=== PATIENT | female | born 1955 | race Caucasian/White ===

== ENCOUNTER → 2016-09-24 | Outpatient (CLI) | payer BC ==
[~2016-09-24] MED LIST: AMLO10CA PO; ASCO10003 PO; ASPI81TA21 PO; CIPR-255 PO; IBUP-103 PO; MULT-506 PO; OXYC7.5T65 PO
--- NOTE | 2016-09-24 11:41 | DIAGNOSTIC IMAGING REPORT ---
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 Renal shadows are otherwise poorly seen due to overlying bowel content. Several pelvic vascular calcifications stable. IMPRESSION: 4 mm calcification lower pole right kidney. Renal shadows are otherwise are not well seen due to overlying bowel content Electronically signed by: Valente Palomares M.D. 09/24/2016 11:40 AM Dictated Date/Time: 09/24/2016 11:39 AM
== END | disposition home or self-care (01) ==
LOC: C.RAD 10:18
PROVIDERS: ATTEND Nurse Practitioner Family
DX: N20.0 Calculus of kidney (principal)

== ENCOUNTER → 2017-04-13 | Outpatient (CLI) | payer BC ==
[~2017-04-13] MED LIST changes: -OXYC7.5T65 PO
--- NOTE | 2017-04-13 09:44 | DIAGNOSTIC IMAGING REPORT ---
KUB HISTORY: R31.0 Gross [id number] COMPARISON: KUB 09/24/2016. FINDINGS: The bowel gas pattern is unremarkable. There are no dilated loops of small bowel to suggest an obstruction. Small cluster of calcifications within the lower pole of the right kidney. There is also a 3 mm stone within the lower pole the left kidney. This remains unchanged. No definite ureteral or bladder calculi identified. Calcifications in the deep pelvis remain stable and are consistent with phleboliths. Cholecystectomy. No pneumoperitoneum or pneumatosis. IMPRESSION: Stable bilateral nephrolithiasis. No ureteral calculi. Electronically signed by: Virgilio De Souza M.D. 04/13/2017 9:42 AM Dictated Date/Time: 04/13/2017 9:41 AM
== END | disposition home or self-care (01) ==
LOC: C.RDSM 09:20
PROVIDERS: ATTEND Urology
DX: R31.0 Gross hematuria (principal)

== ENCOUNTER → 2018-04-11 | Outpatient (CLI) | payer OTHER ==
[~2018-04-11] MED LIST changes: +ASPI-319 PO; -ASPI81TA21 PO
--- NOTE | 2018-04-11 17:27 | DIAGNOSTIC IMAGING REPORT ---
KUB HISTORY: Follow-up study in a patient with history of nephrolithiasis N20.0 Calculus of kidney COMPARISON: KUB 04/13/2017 FINDINGS: The bowel gas pattern is non-obstructive. There is no organomegaly. Renal shadows are partially obscured by bowel gas. Mild to moderate formed stool throughout the colon. Unchanged 3 mm calculus about the inferior pole left kidney. Suggested punctate right nephrolithiasis. No ureteral calculi. Pelvic basin calcifications appear unchanged suggesting phleboliths. Cholecystectomy clips are noted. No pneumoperitoneum or pneumatosis. No fracture. Degenerative changes about the lower lumbar spine. IMPRESSION: Bilateral nephrolithiasis without ureteral calculi identified. Electronically signed by: John Boyd M.D. 04/11/2018 5:26 PM Dictated Date/Time: 04/11/2018 5:24 PM
== END | disposition home or self-care (01) ==
LOC: C.RAD 16:40
PROVIDERS: ATTEND Urology
DX: N20.0 Calculus of kidney (principal)

== ENCOUNTER 2024-09-27 17:08 | Inpatient (IN) ==
[2024-09-27] MEDS: KETOROLAC TROMETHAMINE 15 MG/ML VIAL IV STA (18:19)
[2024-09-27 18:40] LABS: Basophils # (auto) 0.03 K/uL (0.00-0.20); Basophils % (auto) 0.3 %; Eosinophils # (auto) 0.12 K/uL (0.00-0.50); Eosinophils % (auto) 1.1 %; Hematocrit (blood only) 44.4 % (37.0-47.0); Hemoglobin 14.8 g/dl (12.0-16.0); Immature Granulocytes # (auto) 0.04 K/uL (0.01-0.20); Immature Granulocytes % (auto) 0.4 %; Lymphocytes # (auto) 2.21 K/uL (1.20-3.40); Lymphocytes % (auto) 19.5 %; Mean Corpuscular Hemoglobin 30.3 pg (25.0-34.0); Mean Corpuscular Hgb Conc 33.3 g/dL (32.0-36.0); Mean Platelet Volume 10.3 fL (9.4-12.4); Monocytes # (auto) 0.82 K/uL (0.11-0.59); Monocytes % (auto) 7.2 %; Neutrophils # (auto) 8.13 K/uL (1.40-6.50); Neutrophils % (auto) 71.5 %; Platelet Count 286 K/uL (130-400); RDW Standard Deviation 42.6 fL (36.4-46.3); Red Blood Count 4.88 M/uL (4.20-5.40); White Blood Count 11.35 K/ul (4.8-10.8)
[2024-09-27 19:10] LABS: Alanine Aminotransferase 31 U/L (7-52); Albumin Globulin Ratio 1.5 (0.9-2); Albumin Level 4.9 gm/dl (3.4-5.0); Alkaline Phosphatase 66 U/L (34-104); Anion Gap 8 (3-11); Bilirubin,Total 0.6 mg/dl (0.2-1.0); Blood Urea Nitrogen 18 mg/dl (6-23); Calcium 9.8 mg/dl (8.6-10.3); Carbon Dioxide 26 mmol/L (21-32); Chloride 105 mmol/L (98-107); Creatinine Clr Calc Pharmacy 67.1 ml/min; Globulin 3.3 gm/dl (2.5-4.0); Glucose 117 mg/dl (70-99(Fasting)); Sodium 139 mmol/L (136-145); Total Protein 8.2 gm/dl (6.0-8.3)
[2024-09-27 19:55] LABS: Appearance Urine Cloudy (Clear); Bacteria Urine Automated None Seen (None Seen); Bilirubin Urine Negative (Negative); Blood Urine 3+ (Negative); Cast Urine Automated 0-2 /lpf (0-2); Color Urine Dark Yellow; Epithelial Cell Urine Auto 0-2 /hpf (0-2); Glucose Urine UA Negative (Negative); Ketones Urine 1+ (Negative); Leukocyte Esterase Urine 1+ (Negative); Nitrite Urine Negative (Negative); Protein Urine 1+ (Negative); RBC Urine Automated >20 /hpf (0-2); Specific Gravity Urine 1.033 (1.000-1.030); Urobilinogen Urine Negative (Negative); pH Urine 5.5 (4.5-7.5)
--- NOTE | 2024-09-27 23:13 | Emergency Department Note ---
Impression & Plan Nephrolithiasis, Acute flank pain ED Provider Note CHIEF COMPLAINT: Kidney stone HISTORY OF PRESENT ILLNESS: This 69-year-old female patient presents to the emergency department via private vehicle for evaluation of 2 kidney stones on the left side. She reports she was here last night after being referred by her primary care provider. She states her PCP contacted her today and informed her return to the emergency department. She states her symptoms have worsened. She reports no fever, however is having worsening left-sided pain. She states she was having nausea and vomiting, however that is resolved. She reports she was discharged, with Flomax, and pain control, which has not alleviated her symptoms. She denies fever, or movement of her pain. She reports previous kidney stones, with lithotripsy and stenting required. REVIEW OF SYSTEMS: A review of systems was performed with positives and pertinent negatives listed in the history of present illness. All other systems were reviewed and are negative. ALLERGIES: See below MEDICATIONS: See below PMH: See below PHYSICAL EXAM: VITALS: Vitals are noted on the nurse's note and reviewed by myself. Vital signs stable. GENERAL: 69-year-old female, in no acute distress, nondiaphoretic, well- developed well-nourished. SKIN: The skin was without rashes, erythema, edema, or bruising. HEAD: Normocephalic atraumatic. HEART: Regular rate and rhythm without murmurs gallops or rubs. LUNGS: Clear to auscultation bilaterally without wheezes, rales or rhonchi. No retractions or accessory muscle use. ABDOMEN: Positive bowel sounds x 4. Soft, nontender, without masses or organomegaly. Razo sign negative. No guarding or rebound tenderness. Left CVA TTP. NEURO: Patient was alert and oriented to person place and time. No focal neurological deficits. MEDICAL DECISION MAKING: The patient is a pleasant 69-year-old female who arrives to the emergency department for evaluation of the above-stated complaint. The patient was evaluated during a time of high acuity, and high- volume. Initial workup was performed in triage including a saline lock, CBC, CMP, urinalysis. CBC shows slight leukocytosis, 11.35, with a stable hemoglobin and hematocrit, CMP is unremarkable. Urinalysis 1+ protein, 1+ ketones, 3+ blood, 1+ leukocyte esterase, negative nitrates, negative bacteria. CT imaging of the abdomen and pelvis without contrast was obtained, which shows mild left hydronephrosis due to a 9 x 6 mm calculus in the proximal left ureter. The patient was discharged home yesterday, with these findings, with an expectation to pass the stone at home. The patient has reported increased pain, not treated with oral Flomax, and oxycodone. She returns today for concern of not being able to pass the stone, which I do agree with. I spoke with the patient regarding admission for pain control, after IV administration of Toradol, and morphine with slight relief. She was agreeable to staying in the hospital for pain control, as well as urologic consultation. I spoke with Hollis Nassar PA-C from urology, who agreed to consult the patient. The patient was admitted to the [facility], who agreed to accept her for admission. Please refer to their documentation for further patient workup and care. DIFFERENTIAL DIAGNOSIS: Appendicitis, ovarian cyst, ovarian torsion, ectopic , TOA, PID, infections, diverticulitis, UTI, obstruction, mesenteric ischemia, aortic pathology, inflammatory bowel disease, renal colic, PUD, pancreatitis, biliary pathology, hernia, volvulus, constipation, as well as other pathologies. The patient's case was discussed with Dr. Lockhart, who agreed with my evaluation and treatment plan. The chart was completed utilizing [employer] Speech voice recognition software. Grammatical errors, random word insertions, pronoun errors, and incomplete sentences are an occasional consequence of this system due to software limitations, ambient noise, and hardware issues. Any formal questions or concerns about the content, text, or information contained within the body of this dictation should be directly addressed to the physician for clarification. Past Med/Surg History Problem List (Updated 09/28/24 @ 01:46 by KENIA Jones) Acute flank pain (Acute) Nephrolithiasis (Acute) Social History Smoking Status: Never smoker Preferred Language: Kittitian Feels Safe at Home: Yes Allergies Allergies Allergy/AdvReac Type Severity Reaction Status Date / Time No Known Allergies Allergy Unknown Verified 03/31/16 07:50 Home Meds Home Medications Medication Instructions Recorded Confirmed Aspirin Enteric Coated (Ecotrin Or 81 mg PO QAM #0 tabs 11/17/12 Generic) Multivitamin 1 tab PO QAM #0 tabs 11/17/12 ASCORBIC ACID (VITAMIN C) 1,000 mg PO QAM ##0 11/22/12 Amlodipine/Benazepril (Lotrel 1 cap PO QAM #0 caps 11/22/12 10MG/20MG) Ibuprofen Tab (ADVIL) 400 - 600 mg PO PRN #0 tabs 03/18/16 Previous Rx's Medication Instructions Recorded CIPROFLOXACIN HCL (CIPRO) 500 mg PO BID #8 tabs 03/31/16 Results & Data (ED) Vital Signs Vital Signs - 24 hr 09/27/24 17:48 09/27/24 19:43 09/27/24 22:00 Temperature 36.5 C Temperature Source Skin Pulse Rate 90 64 Pulse Rate [Finger] 80 Respiratory Rate 19 20 Respiratory Effort / Characteristics Non-Labored Spontaneous Non-Labored Spontaneous Respiratory Depth Normal Normal Respiratory Pattern Regular Blood Pressure 149/85 H Blood Pressure [Right Arm] 127/77 Blood Pressure Mean 106 Blood Pressure Mean [Right Arm] 93 Blood Pressure Position [Right Arm] Pulse Oximetry 97 97 Oxygen Delivery Method Room Air Room Air Sepsis Recent Fever Within 48 Hours No Sepsis New/Unexplained Change in Mental Status N/A Sepsis Action Taken by Nursing No Action Required 09/27/24 22:01 Temperature Temperature Source Pulse Rate Pulse Rate [Finger] 59 L Respiratory Rate 18 Respiratory Effort / Characteristics Non-Labored Spontaneous Respiratory Depth Respiratory Pattern Blood Pressure Blood Pressure [Right Arm] 146/82 H Blood Pressure Mean Blood Pressure Mean [Right Arm] 103 Blood Pressure Position [Right Arm] Lying Pulse Oximetry 97 Oxygen Delivery Method Room Air Sepsis Recent Fever Within 48 Hours Sepsis New/Unexplained Change in Mental Status Sepsis Action Taken by Intermediate Medications Current Medication List: was personally reviewed by me Laboratory Data Attestation: I reviewed the patient's lab results. 09/27/24 18:20 09/28/24 01:10 Lab Results 09/27/24 09/27/24 09/28/24 Range/Units 18:20 19:42 01:10 WBC 11.35 H (4.8-10.8) K/ul RBC 4.88 (4.20-5.40) M/uL Hgb 14.8 (12.0-16.0) g/dl Hct 44.4 (37.0-47.0) % MCV 91.0 (80.0-100.0) fL MCH 30.3 (25.0-34.0) pg MCHC 33.3 (32.0-36.0) g/dL RDW Std Deviation 42.6 (36.4-46.3) fL RDW Coeff of Vonda 13.0 (11.5-14.5) % Plt Count 286 (130-400) K/uL MPV 10.3 (9.4-12.4) fL Immature Gran % (Auto) 0.4 % Neut % (Auto) 71.5 % Lymph % (Auto) 19.5 % Canyon % (Auto) 7.2 % Eos % (Auto) 1.1 % Baso % (Auto) 0.3 % Neut # (Auto) 8.13 H (1.40-6.50) K/uL Lymph # (Auto) 2.21 (1.20-3.40) K/uL Canyon # (Auto) 0.82 H (0.11-0.59) K/uL Eos # (Auto) 0.12 (0.00-0.50) K/uL Baso # (Auto) 0.03 (0.00-0.20) K/uL Immature Gran # (Auto) 0.04 (0.01-0.20) K/uL Sodium 139 (136-145) mmol/L Potassium TNP 3.7 Chloride 105 (98-107) mmol/L Carbon Dioxide 26 (21-32) mmol/L Anion Gap 8 (3-11) BUN 18 (6-23) mg/dl Creatinine 0.82 (0.6-1.2) mg/dl Est Cr Clr Drug Dosing 67.1 ml/min eGFR 78.35 BUN/Creatinine Ratio 22.0 H (10-20) Glucose 117 H (70-99(Fasting)) mg/dl Calcium 9.8 (8.6-10.3) mg/dl Total Bilirubin 0.6 (0.2-1.0) mg/dl AST TNP 26 ALT 31 (7-52) U/L Alkaline Phosphatase 66 (34-104) U/L Total Protein 8.2 (6.0-8.3) gm/dl Albumin 4.9 (3.4-5.0) gm/dl Globulin 3.3 (2.5-4.0) gm/dl Albumin/Globulin Ratio 1.5 (0.9-2) Urine Color Dark Yellow Urine Appearance Cloudy A (Clear) Urine pH 5.5 (4.5-7.5) Ur Specific Ambia 1.033 H (1.000-1.030) Urine Protein 1+ H (Negative) Urine Glucose (UA) Negative (Negative) Urine Ketones 1+ H (Negative) Urine Blood 3+ H (Negative) Urine Nitrite Negative (Negative) Urine Bilirubin Negative (Negative) Urine Urobilinogen Negative (Negative) Ur Leukocyte Esterase 1+ H (Negative) Urine WBC (Auto) 11-20 H (0-5) /hpf Urine RBC (Auto) >20 H (0-2) /hpf U Hyaline Cast (Auto) 0-2 (0-2) /lpf U Epithel Cells (Auto) 0-2 (0-2) /hpf Urine Bacteria (Auto) None Seen (None Seen) Administered Medications Discontinued Medications Sodium Chloride (Nss) 1,000 mls @ 999 mls/hr IV .Q1H1M ONE Stop: 09/28/24 00:20 Last Admin: 09/27/24 23:54 Dose: 999 mls/hr Documented By: GAUTAM Ketorolac Tromethamine (Ketorolac Tromethamine 15 Mg/Ml Vial) 15 mg IV ONE STA Stop: 09/27/24 17:56 Last Admin: 09/27/24 18:19 Dose: 15 mg Documented By: OTONIEL Morphine Sulfate (Morphine Sulfate 4 Mg/Ml 1 Ml Carp\Vial) 4 mg IV NOW STA Stop: 09/27/24 23:29 Last Admin: 09/27/24 23:50 Dose: 4 mg Documented By: GAUTAM Imaging Data Attestation: I personally reviewed and interpreted this imaging study as follows: Radiologist's Impression: Abdomen/Pelvis CT 09/27/24 22:19 Exam(s): CT ABDOMEN + PELVIS Without Contrast EXAM: CT Abdomen and Pelvis Without Intravenous Contrast CLINICAL HISTORY: Reason for exam: r/o stone. TECHNIQUE: Axial computed tomography images of the abdomen and pelvis without intravenous contrast. CTDI is 24.46 mGy and DLP is 1144.76 mGy-cm. Automated exposure control was utilized for the study. A dose lowering technique was utilized adhering to the principles of ALARA. COMPARISON: September 26, 2024 FINDINGS: Lung bases: Unremarkable. No mass. No consolidation. ABDOMEN: Liver: Unremarkable. Gallbladder and bile ducts: Previous cholecystectomy. No ductal dilation. Pancreas: Unremarkable. No ductal dilation. Spleen: Unremarkable. No splenomegaly. Adrenals: Unremarkable. No mass. Kidneys and ureters: Mild left hydronephrosis due to a 9 x 6 mm calculus in the proximal left ureter, just beyond the ureteropelvic junction. Nonobstructive 3 mm calyceal calculus in the lower pole left kidney. Stomach and bowel: Unremarkable. No obstruction. No mucosal thickening. PELVIS: Appendix: No findings to suggest acute appendicitis. Bladder: Unremarkable. No stones. Reproductive: Unremarkable as visualized. ABDOMEN and PELVIS: Intraperitoneal space: Unremarkable. No free air. No significant fluid collection. Bones/joints: Moderate multilevel degenerative changes throughout the spine. No acute fracture or subluxation is seen. Soft tissues: Unremarkable. Vasculature: The abdominal aorta is mildly calcified but nondilated. Lymph nodes: Unremarkable. No enlarged lymph nodes. IMPRESSION: Mild left hydronephrosis due to a 9 x 6 mm calculus in the proximal left ureter, just beyond the ureteropelvic junction. Little changed since previous. Electronically signed by: Irineo Bowman MD 09/28/24 01:00 AM Discharge Plan Visit Data Chief Complaint: Kidney Stone Stated Complaint: KIDNEY STONE (2) PROVIDER SENT ED Provider: Inocencio Lockhart ED Midlevel Provider: Daniela Alexandre Discharge Problem: Nephrolithiasis, Acute flank pain Forms Stand Alone Forms: [employer] Prescriptions Prescriptions: No Action Aspirin Enteric Coated (Ecotrin Or Generic) 81 MG tablet 81 mg PO QAM Qty: 0 Patient Comments: Restart in 5 days if urine clear Multivitamin tablet 1 tab PO QAM Qty: 0 ASCORBIC ACID (VITAMIN C) 1,000 MG tablet 1,000 mg PO QAM Qty: 0 Amlodipine/Benazepril (Lotrel 10MG/20MG) 10 MG/20 MG capsule 1 cap PO QAM Qty: 0 Ibuprofen Tab (ADVIL) 200 MG tablet 400 - 600 mg PO PRN Qty: 0 Patient Comments: Restart in 2-3 days if urine clear CIPROFLOXACIN HCL (CIPRO) 500 MG tablet 500 mg PO BID Qty: 8 0RF Referrals Referrals: Sanjana Juárez DO [Primary Care Provider] -
[2024-09-27] MEDS: MoRPHine SULFATE 4 MG/ML 1 ML CARP\\VIAL IV STA (23:50)
[2024-09-27] MEDS: SODIUM CHLORIDE 0.9% 1,000 ML IV ONE (23:54)
--- NOTE | 2024-09-28 01:01 | CT Scan Report ---
Exam(s): CT ABDOMEN + PELVIS Without Contrast EXAM: CT Abdomen and Pelvis Without Intravenous Contrast CLINICAL HISTORY: Reason for exam: r/o stone. TECHNIQUE: Axial computed tomography images of the abdomen and pelvis without intravenous contrast. CTDI is 24.46 mGy and DLP is 1144.76 mGy-cm. Automated exposure control was utilized for the study. A dose lowering technique was utilized adhering to the principles of ALARA. COMPARISON: September 26, 2024 FINDINGS: Lung bases: Unremarkable. No mass. No consolidation. ABDOMEN: Liver: Unremarkable. Gallbladder and bile ducts: Previous cholecystectomy. No ductal dilation. Pancreas: Unremarkable. No ductal dilation. Spleen: Unremarkable. No splenomegaly. Adrenals: Unremarkable. No mass. Kidneys and ureters: Mild left hydronephrosis due to a 9 x 6 mm calculus in the proximal left ureter, just beyond the ureteropelvic junction. Nonobstructive 3 mm calyceal calculus in the lower pole left kidney. Stomach and bowel: Unremarkable. No obstruction. No mucosal thickening. PELVIS: Appendix: No findings to suggest acute appendicitis. Bladder: Unremarkable. No stones. Reproductive: Unremarkable as visualized. ABDOMEN and PELVIS: Intraperitoneal space: Unremarkable. No free air. No significant fluid collection. Bones/joints: Moderate multilevel degenerative changes throughout the spine. No acute fracture or subluxation is seen. Soft tissues: Unremarkable. Vasculature: The abdominal aorta is mildly calcified but nondilated. Lymph nodes: Unremarkable. No enlarged lymph nodes. IMPRESSION: Mild left hydronephrosis due to a 9 x 6 mm calculus in the proximal left ureter, just beyond the ureteropelvic junction. Little changed since previous. Electronically signed by: Irineo Bowman MD 09/28/24 01:00 AM
--- NOTE | 2024-09-28 01:06 | Emergency Department Note ---
ED Visit Note I was consulted by the Advanced Practice Provider. The case was discussed at length. I personally made/approved the management plan and take responsibility for the patient management. I performed a substantive portion of the visit. This includes the aspects of: Patient presents with ongoing flank pain. She has a very large 9 mm ureteral stone with associated hydronephrosis. Admission for pain control and a urology consultation/intervention is warranted. .
--- NOTE | 2024-09-28 01:30 | History & Physical Report ---
Date of Service September 28, 2024 Assessment & Plan (1) Nephrolithiasis: (2) Leukocytosis: (3) Hypertension: (4) Prediabetes: (5) Hyperlipidemia: Plan Patient is a 69 y/o female with a PMHx of prediabetes, HTN, HLD, and right sided nephrolithiasis requiring stents x1. She is being admitted for an infected left- sided nephrolithiasis requiring IV antibiotics, IV pain control and possible surgical management with urology. #nephrolithiasis/leukocytosis CTAP showing Mild left hydronephrosis due to a 9 x 6 mm calculus in proximal left ureter, just beyond UPJ suspect infectious given leukocytosis with WBC 11.35 on admission UA high specific gravity, 1+ ketones, 1+ protein, 3+ blood, leukocyte esterase, 11-20 WBC, no bacteria seen Will cover with Rocephin Follow urine cultures urology consulted n.p.o. status in to be evaluated in a.m. 09/28 to determine if surgical management required Renal function stable, trend BMP tamsulosin 0.4 Mg daily Pain control with IV Tylenol and IV morphine 2/4 mg as needed Zofran as needed IVF resuscitation overnight with NSS at 80 mL/hour #Hypertension Hold home amlodipine/benazepril given n.p.o. status and possible surgical management BP stable on admission #Prediabetes On metformin at home; hold Defer insulin management on admission; could add loose SSI if consistently hyperglycemic No recent A1c on file however patient states is 5.5 #HLD Holding statin given n.p.o. status VTE ppx: SCDs, low risk and possible surgical management Diet: n.p.o.; can have heart healthy diet when no longer n.p.o. status Dispo: MedSurg Admission and Anticipated Discharge Date Admission Date: 09/28/24 History of Present Illness Chief Complaint: kidney stone Primary Care Provider: Sanjana Azar DO Patient is a 69 y/o female with a PMHx of prediabetes, HTN, HLD, and right sided nephrolithiasis requiring stents x1. She is being admitted for an infected left- sided nephrolithiasis requiring IV antibiotics, IV pain control and possible surgical management with urology. Patient seen at bedside. She stated that she went to [place] with her cousin recently and had 2 days of hematuria there. She had no recurrence of the hematuria since. She then came home and started to develop left-sided flank pain and nausea/vomiting. She does have a history of kidney stones and this feels similar so she knew she had a stone. He had right sided kidney stone approximately 4 years ago that required stent placement by Dr. Hawthorne. She has had multiple stones since but passed them on her own. She went to her PCP Thursday evening and they prescribed her Tylenol, oxycodone, and tamsulosin. They then referred her to the hospital for CT scan which showed a left-sided kidney stone. She stated she had significant pain Thursday and her PCP referred her to come to the ED. she did not start taking the medications prescribed. Patient denies fever, chills, dyspnea, chest pain, nausea, vomiting, dysuria. She does not use nicotine products or regularly drink alcohol. She denies history of diabetes but does have prediabetes takes metformin. She denies history of previous VTE. She does not have a history of COPD or asthma. She did take her home medications today, which includes Lotrel and a cholesterol medication. She wishes to be full code at this time. Allergies Allergy/AdvReac Type Severity Reaction Status Date / Time No Known Allergies Allergy Unknown Verified 09/28/24 02:15 Home Medications Medication Instructions Recorded Confirmed Type amlodipine 10 mg-benazepril 20 mg 1 cap PO DAILY 09/28/24 09/28/24 History capsule ascorbic acid (vitamin C) 1,000 mg 1 g PO DAILY 09/28/24 09/28/24 History tablet (Vitamin C) aspirin 81 mg tablet,delayed 81 mg PO DAILY 09/28/24 09/28/24 History release ciprofloxacin HCl 500 mg tablet 500 mg PO Q12H #10 tabs 09/28/24 Rx metformin 500 mg tablet 500 mg PO BIDM 09/28/24 09/28/24 History multivitamin 1 tab PO DAILY 09/28/24 09/28/24 History oxycodone 5 mg tablet 5 mg PO Q4 PRN Pain 09/28/24 09/28/24 History phenazopyridine 200 mg tablet 200 mg PO Q8H PRN pain 6 doses #6 09/28/24 Rx (Pyridium) tabs pravastatin 10 mg tablet 10 mg PO HS 09/28/24 09/28/24 History tamsulosin 0.4 mg capsule 0.4 mg PO DAILY 14 days #14 caps 09/28/24 Rx tramadol 50 mg tablet 50 mg PO Q6H PRN pain #10 tabs 09/28/24 Rx Past Med/Surg History Problem List Calculus of proximal left ureter Hyperlipidemia Prediabetes Hypertension Leukocytosis Acute flank pain (Acute) Nephrolithiasis (Acute) Social History Smoking Status: Never smoker Hx Alcohol Use: Yes Hx Substance Use: No Preferred Language: Slovenian Communication Ability: Effective News Cameraman Required: No Beliefs That Will Affect Care: None Current Living Situation: Alone Feels Safe at Home: Yes Assistive Devices: Contacts Review of Systems Review of Systems: see HPI Physical Exam Physical Exam: The patient is awake, alert and oriented 3, well developed and well nourished, normocephalic and atraumatic, in no acute distress. Non-toxic appearing. HEENT- EOMI, mucous membranes moist. Hearing grossly intact. Heart-normal S1 and S2. No murmurs, rubs or gallops. Lungs-clear bilaterally, no respiratory distress, no accessory muscle use. Abdomen-normal bowel sounds and soft. No ascites noted. Tender to RLL and LLQ. Left sided flank pain. Extremities- no clubbing, cyanosis, or edema. Rheumatologic-normal range of motion. Psychiatric-normal affect. Results & Data Results & Data Vital Signs (Past 12 Hours) Vital Signs Temp Pulse Pulse Resp BP BP Pulse Ox 09/27/24 22:01 59 L 18 146/82 H 97 09/27/24 22:00 64 09/27/24 19:43 80 20 127/77 97 09/27/24 17:48 36.5 C 90 19 149/85 H 97 O2 Del Method 09/27/24 22:01 Room Air 09/27/24 22:00 09/27/24 19:43 Room Air 09/27/24 17:48 Room Air Laboratory Results reviewed CBC, CMP, UA Diagnostic Findings reviewed AP CT Medications Administered ED - 1L NSS bolus, IV Toradol, 4 Mg IV morphine, Rocephin 2G IV ECG Additional Comments: ordered Code Status & VTE Plan Code Status full code VTE Prophylaxis Plan VTE Prophylaxis will be ordered: Yes Supervising Physician Co-Signing Physician Notes Attending addendum: I have physically seen this patient, have supervised the MELVIN's activities, and agree with the H&P unless as otherwise noted. Assessment and Plan: The patient is a 69-year-old female with past medical history including prediabetes, hypertension, hyperlipidemia, and right sided nephrolithiasis requiring stent x 1. She presents to the emergency department with CT scan suggesting mild left hydro nephrosis, with 9 x 6 mm proximal left ureteral stone at the UPJ. 9x 6 mm proximal left ureteral stone, she has been on UPJ, with mild left hydronephrosis- Follow urine culture and sensitivity WBC elevated at 11.35 Empiric ceftriaxone 2 g IV daily N.p.o. Tamsulosin 0.4 mg p.o. daily Acetaminophen 1 g IV every 8 hours needed for mild pain or fever Morphine sulfate 2 mg IV every 4 hours needed for moderate pain Morphine sulfate 4 mg IV every 3 hours needed for severe pain Zofran 4 mg IV every 6 hours as needed NSS 80 mL/h Consult nephrology Hypertension- Holding amlodipine-benazepril Hydralazine 10 mg IV every 4 hours as needed for systolic blood pressure greater than 160 Prediabetes- Holding metformin Placed on Accu-Cheks NovoLog SSI Remaining orders and notations as noted PG Care Time/CCT Total # of Minutes Spent Total Time Spent with Patient: Total time spent is greater than 50% in coordination of care (as documented) at patient's floor/unit and/or counseling patient: Coding Level of Care Code 96841 INT INP/OBS CARE 375MIN Diagnoses Nephrolithiasis N20.0 Leukocytosis D72.829 Hypertension I10 Prediabetes R73.03 Hyperlipidemia E78.5
[2024-09-28 01:37] LABS: Potassium 3.7 mmol/L (3.5-5.1)
--- NOTE | 2024-09-28 01:43 | Urology Consultation ---
Date of Consultation September 28, 2024 Assessment & Plan (1) Nephrolithiasis: The patient is being admitted on the hospitalist service. From a urologic perspective we recommend the following: Provide analgesics Provide antiemetics Consider adding Flomax for expulsive therapy Provide IV fluid for hydration Rocephin has been initiated as patient has an abnormal urinalysis and an appropriate culture has been sent. Antibiotics be tailored based on these results Would implement n.p.o. status Patient be evaluated the morning of 09/28/2024 to determine if cystoscopic intervention is required At the time of my exam with the patient she was normotensive without tachycardia or fever and therefore I do not feel an emergent urologic procedure is required at this time Additional recommendations will be forthcoming based on her clinical course as unfolds History of Present Illness Reason for Consultation: Nephrolithiasis History of Present Illness This is a 69-year-old female who presented to the emergency department secondary to left flank pain. Patient notes that she has been having on and off pain in the left flank with some radiation to the front of her abdomen for approximately 1 week. She denies any nausea or vomiting. She denies any fevers, shakes, or chills. She does note that she was having some episodes of hematuria but this has improved. She denies any dysuria. She has that she does have a history of nephrolithiasis in the past and reports this was several years ago and required cystoscopy. She notes this procedure was performed by Dr. Yadiel Hawthorne. Since arrival to the emergency department and the patient has had labs and imaging which I independent reviewed. A CT scan of the abdomen showed that she had mild left hydronephrosis secondary to kidney stone measuring approximately 9 mm in the proximal left ureter. Labs include a CBC were white blood cell count was elevated 11.3. Hemoglobin and hematocrit as well as the platelet count was normal. Chemistry profile showed sodium and potassium as well as the BUN and creatinine were low. There is no elevation of LFTs or lipase. Urinalysis was negative for nitrites but did have 1+ leukocyte Estrace and 11-20 white blood cells per high-power field. There is no bacteria on the study. At the time my interview the patient was resting comfortably in bed and she was in no distress. Allergies Allergy/AdvReac Type Severity Reaction Status Date / Time No Known Allergies Allergy Unknown Verified 03/31/16 07:50 Home Medications Medication Instructions Recorded Confirmed Type Aspirin Enteric Coated (Ecotrin Or 81 mg PO QAM #0 tabs 11/17/12 History Generic) Multivitamin 1 tab PO QAM #0 tabs 11/17/12 History ASCORBIC ACID (VITAMIN C) 1,000 mg PO QAM ##0 11/22/12 History Amlodipine/Benazepril (Lotrel 1 cap PO QAM #0 caps 11/22/12 History 10MG/20MG) Ibuprofen Tab (ADVIL) 400 - 600 mg PO PRN #0 tabs 03/18/16 History CIPROFLOXACIN HCL (CIPRO) 500 mg PO BID #8 tabs 03/31/16 Rx Patient History Social History Smoking Status: Never smoker Preferred Language: Tunisian Feels Safe at Home: Yes Review of Systems Review of Systems: All systems reviewed & are unremarkable except as noted in HPI & below Physical Exam Constitutional: WD/WN, vitals as above Eyes: no conjunctival abnormality ENMT: Ears: no hearing impairment and no external ear abnormality Mouth: no oropharynx abnormality Neck: trachea midline Respiratory: normal respiratory effort; no respiratory distress and no labored breathing Cardiovascular: Rate/Rhythm: regular rate and regular rhythm Gastrointestinal (Abdomen): At the time of my exam abdomen was soft and nondistended. There is minimal pain with palpation Musculoskeletal: No calf tenderness Skin: no rashes Neurologic: moves all extremities Psychiatric: A+Ox3, euthymic affect Genitourinary: No CVA tenderness noted with percussion bilaterally at the time of my exam Results & Data Vital Signs (Past 12 Hours) Vital Signs Temp Pulse Pulse Resp BP BP Pulse Ox 09/27/24 22:01 59 L 18 146/82 H 97 09/27/24 22:00 64 09/27/24 19:43 80 20 127/77 97 09/27/24 17:48 36.5 C 90 19 149/85 H 97 O2 Del Method 09/27/24 22:01 Room Air 09/27/24 22:00 09/27/24 19:43 Room Air 09/27/24 17:48 Room Air PG Care Time/CCT Total # of Minutes Spent Total Time Spent with Patient: Total time spent is greater than 50% in coordination of care (as documented) at patient's floor/unit and/or counseling patient: Coding Level of Care Code 18535 INT INP/OBS CARE Diagnoses Nephrolithiasis N20.0
[2024-09-28] MEDS: TAMSULOSIN HCL 0.4 MG CAP PO ONE (02:21)
[2024-09-28] MEDS: cefTRIAXone SODIUM 2,000 MG/50 ML BAG IV STA (02:21)
[2024-09-28] MEDS ORDERED: MoRPHine SULFATE 2 MG/ML CARP IV PRN (03:37)
[2024-09-28] MEDS ORDERED: ONDANSETRON INJ 2 MG/ML 2 ML VIAL IV PRN ×2 (03:37→15:51)
[2024-09-28] MEDS: SODIUM CHLORIDE 0.9% 1,000 ML IV SCH (03:42)
[2024-09-28] MEDS: MoRPHine SULFATE 4 MG/ML 1 ML CARP\\VIAL IV PRN (07:29)
[2024-09-28 08:02] LABS: Basophils # (auto) 0.02 K/uL (0.00-0.20); Basophils % (auto) 0.3 %; Eosinophils # (auto) 0.12 K/uL (0.00-0.50); Eosinophils % (auto) 1.7 %; Hematocrit (blood only) 37.5 % (37.0-47.0); Hemoglobin 12.7 g/dl (12.0-16.0); Immature Granulocytes # (auto) 0.01 K/uL (0.01-0.20); Immature Granulocytes % (auto) 0.1 %; Lymphocytes # (auto) 2.33 K/uL (1.20-3.40); Lymphocytes % (auto) 32.9 %; Mean Corpuscular Hemoglobin 31.1 pg (25.0-34.0); Mean Corpuscular Hgb Conc 33.9 g/dL (32.0-36.0); Mean Corpuscular Volume 91.7 fL (80.0-100.0); Mean Platelet Volume 10.4 fL (9.4-12.4); Monocytes # (auto) 0.67 K/uL (0.11-0.59); Monocytes % (auto) 9.5 %; Neutrophils # (auto) 3.93 K/uL (1.40-6.50); Neutrophils % (auto) 55.5 %; Platelet Count 229 K/uL (130-400); RDW Standard Deviation 44.4 fL (36.4-46.3); Red Blood Count 4.09 M/uL (4.20-5.40); White Blood Count 7.08 K/ul (4.8-10.8)
[2024-09-28 08:19] LABS: BUN Creatinine Ratio 26.1 (10-20); Calcium 8.7 mg/dl (8.6-10.3); Creatinine Clr Calc Pharmacy 80.3 ml/min; Magnesium 1.9 mg/dl (1.7-2.4); Potassium 3.5 mmol/L (3.5-5.1)
--- NOTE | 2024-09-28 09:48 | Urology Progress Note ---
Date of Service September 28, 2024 Assessment & Plan (1) Calculus of proximal left ureter: (2) Acute flank pain: Plan: Follow-up of left proximal ureteral stone Patient afebrile with stable vitals Labs reviewedcreatinine 0.69, no leukocytosis Urinalysis showed 3+ blood, 1+ LE, 11-20 WBC, >20 RBC, negative for bacteria Urine culture is pending She has been initiated on empiric antibiotics, follow cultures Reviewed and discussed options for stone management including cystoscopy and left ureteral stent placement today versus outpatient management if symptoms are manageable Ureteral stents discussed in detail Discussed stone treatment at a later date After discussion, she wishes to proceed with surgical intervention today Plan for OR later today with cystoscopy and left ureteral stent placement Keep NPO for procedure Continue supportive care and medical management per hospital medicine service Admission and Anticipated Discharge Date Admission Date: September 28, 2024 Supervising Physician Co-Signing Physician Notes To Or for cysto, left stent consent obtained patient marked Subjective Patient seen and examined at bedside this morning. He is awake and resting in bed. She reports intermittent left flank pain, better this morning. Denies socorro sea, vomiting, fever or chills at present. Voiding spontaneously. No dysuria or hematuria. She reports prior ureteroscopy and stent placement with Dr. Hawthorne 5+ years ago. Review of Systems Constitutional: as per Subjective / HPI Genitourinary: as per Subjective / HPI Physical Exam Constitutional: well developed and well nourished; no acute distress Respiratory: normal respiratory effort; no respiratory distress and no labored breathing Gastrointestinal (Abdomen): Inspection/Auscultation: abdomen normal to inspection Musculoskeletal: Head/Neck/Chest: normocephalic Neurologic: moves all extremities and awake Psychiatric: Orientation: alert and oriented x 3 Results & Data Vital Signs (Past 12 Hours) Vital Signs Temp Pulse Pulse Resp BP BP Pulse Ox 09/28/24 07:50 36.6 C 72 16 126/74 95 09/28/24 03:38 36.5 C 77 16 172/86 H 95 09/28/24 02:50 09/28/24 02:00 60 20 148/83 H 98 09/28/24 01:54 63 09/28/24 00:00 68 17 160/87 H 93 09/27/24 22:01 59 L 18 146/82 H 97 09/27/24 22:00 64 O2 Del Method 09/28/24 07:50 Room Air 09/28/24 03:38 Room Air 09/28/24 02:50 Room Air 09/28/24 02:00 Room Air 09/28/24 01:54 09/28/24 00:00 Room Air 09/27/24 22:01 Room Air 09/27/24 22:00 PG Care Time/CCT Total # of Minutes Spent Total Time Spent with Patient: Total time spent is greater than 50% in coordination of care (as documented) at patient's floor/unit and/or counseling patient: Coding Level of Care Code None Diagnoses Calculus of proximal left ureter N20.1 Acute flank pain R10.9
[2024-09-28] MEDS: ACETAMINOPHEN 1,000 MG/100 ML VIAL IV PRN (12:03)
--- NOTE | 2024-09-28 12:49 | Electrocardiogram Report ---
Test Reason : Blood Pressure : */* mmHG Vent. Rate : 63 BPM Atrial Rate : 63 BPM P-R Int : 130 ms QRS Dur : 96 ms QT Int : 406 ms P-R-T Axes : 50 15 -19 degrees QTcB Int : 415 ms Normal sinus rhythm Nonspecific T wave abnormality Abnormal ECG When compared with ECG of 18-Mar-2016 10:23, Nonspecific T wave abnormality now evident in Anterior leads Confirmed by Nicholas Jimenez ([id number]) on 09/28/2024 12:48:31 PM Referred By: Sanjana Azar Confirmed By: Nicholas Jimenez
--- NOTE | 2024-09-28 15:29 | Hospitalist Progress Note ---
Date of Service September 28, 2024 Assessment & Plan (1) Nephrolithiasis: (2) Leukocytosis: (3) Hypertension: (4) Prediabetes: (5) Hyperlipidemia: Plan Patient is a 69 y/o female with a PMHx of prediabetes, HTN, HLD, and right sided nephrolithiasis requiring stents x1. She is being admitted for an infected left- sided nephrolithiasis requiring IV antibiotics, IV pain control and possible surgical management with urology. #nephrolithiasis/ Possible UTI CTAP showing Mild left hydronephrosis due to a 9 x 6 mm calculus in proximal left ureter, just beyond UPJ UA concerning for infection, started on ceftriaxone. Urine culture pending Urology consulted - plan for stent placement today 09/[address] Smith Continue Flomax Pain control with IV Tylenol and IV morphine 2/4 mg as needed #Hypertension BP stable, resume home amlodipine/benazepril after OR #Prediabetes On metformin at home; hold - resume post op No recent A1c on file however patient states is 5.5 #HLD Continue statin post op Dispo: continued inpatient stay, discharge timing pending recovery from OR procedure. Admission and Anticipated Discharge Date Admission Date: September 28, 2024 Supervising Physician Co-Signing Physician Notes PA Supervision Note: I did not personally see or examine the patient today, but I verified all sharma points of SHEEBA Holt's assessment and plan with the following exceptions/additions: None Subjective Patient seen ambulatingin room pain is conrolled with pain medications but has surges as this wears off had some hematuria but no dysuria or frequency outpatient denies fevers or chills Review of Systems Review of Systems: All systems reviewed & are unremarkable except as noted in Subjective Physical Exam Physical Exam: General: NAD, VS as above, appears comfortable Resp: normal respiratory effort, lungs clear to auscultation CV: RRR, no murmur, Abd: normal bowel sounds, non tender, no hepatosplenomegaly Extremities: Moves all extremities, no edema Neuro: A&O x3, Skin: intact, no lesions noted Results & Data Results & Data Vital Signs (Past 12 Hours) Vital Signs Temp Pulse Resp BP Pulse Ox O2 Del Method 09/28/24 15:18 97.9 F 69 16 119/72 93 Room Air 09/28/24 07:50 97.9 F 72 16 126/74 95 Room Air 09/28/24 03:38 97.7 F 77 16 172/86 H 95 Room Air PG Care Time/CCT Total # of Minutes Spent Total Time Spent with Patient: Total time spent is greater than 50% in coordination of care (as documented) at patient's floor/unit and/or counseling patient: Coding Level of Care Code None Diagnoses Nephrolithiasis N20.0 Leukocytosis D72.829 Hypertension I10 Prediabetes R73.03 Hyperlipidemia E78.5
--- NOTE | 2024-09-28 15:41 | Anesthesiology Consultation ---
Date of Service September 28, 2024 Assessment & Plan Chart Review Chart Review: Acceptable Risk for Surgery and Patient NOT seen in Pre Admission Testing History Surgery Operation Date: 09/28/24 14:50 Proposed Procedures p Cystoscopy, Left Ureteral Stent Placement - Anish Smith MD Height/Weight Height: 5 ft 2 in Weight: 85.6 kg Allergies Allergy/AdvReac Type Severity Reaction Status Date / Time No Known Allergies Allergy Unknown Verified 09/28/24 02:15 Medications Home Medications Medication Instructions Recorded Confirmed Last Taken amlodipine 10 mg-benazepril 20 mg 1 cap PO DAILY 09/28/24 09/28/24 Unknown capsule ascorbic acid (vitamin C) 1,000 mg 1 g PO DAILY 09/28/24 09/28/24 Unknown tablet (Vitamin C) aspirin 81 mg tablet,delayed 81 mg PO DAILY 09/28/24 09/28/24 Unknown release metformin 500 mg tablet 500 mg PO BIDM 09/28/24 09/28/24 Unknown multivitamin 1 tab PO DAILY 09/28/24 09/28/24 Unknown oxycodone 5 mg tablet 5 mg PO Q4 PRN Pain 09/28/24 09/28/24 Unknown pravastatin 10 mg tablet 10 mg PO HS 09/28/24 09/28/24 Unknown tamsulosin 0.4 mg capsule 0.4 mg PO DAILY 09/28/24 09/28/24 Unknown Active Medications Generic Name Dose Route Start Last Admin Trade Name Freq PRN Reason Stop Dose Admin Sodium Chloride 1,000 mls @ 80 mls/hr 09/28/24 02:00 09/28/24 15:32 Nss IV 09/29/24 01:59 Infused .[id number] MYLES Infusion Acetaminophen 1,000 mg in 100 mls @ 400 mls/hr 09/28/24 03:37 09/28/24 12:24 Ofirmev IV 10/01/24 03:36 Infused Q8H PRN Infusion Pain or Fever Morphine Sulfate 4 mg 09/28/24 03:37 09/28/24 13:59 Morphine Sulfate 4 Mg/Ml 1 Ml Carp\Vial IV 10/12/24 03:36 4 mg Q6H PRN Administration Severe Pain (Scale 7, 8, 9,10) NPO Date Last Intake of Fluids: 09/27/24 Time Last Intake of Fluids: 07:00 Date Last Intake of Solids: 09/27/24 Time Last Intake of Solids: 07:00 Social History Smoking Status: Never smoker Hx Alcohol Use: Yes alcohol intake frequency: holidays/special occasions only Hx Substance Use: No Physical Exam Vital Signs Last Vital Signs Temp 36.6 C 09/28/24 15:30 Pulse 85 09/28/24 15:30 Resp 16 09/28/24 15:30 BP 154/74 H 09/28/24 15:30 Pulse Ox 97 09/28/24 15:30 O2 Del Method Room Air 09/28/24 15:30 Testing Laboratory Results 09/28/24 07:17 09/28/24 07:17 Urine Color Dark Yellow 09/27/24 19:42 Urine Appearance Cloudy (Clear) A 09/27/24 19:42 Urine pH 5.5 (4.5-7.5) 09/27/24 19:42 Ur Specific Priddy 1.033 (1.000-1.030) H 09/27/24 19:42 Urine Protein 1+ (Negative) H 09/27/24 19:42 Urine Glucose (UA) Negative (Negative) 09/27/24 19:42 Urine Ketones 1+ (Negative) H 09/27/24 19:42 Urine Nitrite Negative (Negative) 09/27/24 19:42 Ur Leukocyte Esterase 1+ (Negative) H 09/27/24 19:42 Urine WBC (Auto) 11-20 /hpf (0-5) H 09/27/24 19:42 Urine RBC (Auto) >20 /hpf (0-2) H 09/27/24 19:42 U Hyaline Cast (Auto) 0-2 /lpf (0-2) 09/27/24 19:42 U Epithel Cells (Auto) 0-2 /hpf (0-2) 09/27/24 19:42 Urine Bacteria (Auto) None Seen (None Seen) 09/27/24 19:42 09/27/24 19:42 Urine Culture - Preliminary Urine,Clean Catch Pin-point growth present, reincubating.
[2024-09-28] MEDS ORDERED: fentaNYL citrate PF 100 MCG/2 ML VIAL IV PRN (15:51)
[2024-09-28] MEDS ORDERED: ePHEDrine sulfate 50 MG/ML AMP IV PRN (15:51)
[2024-09-28] MEDS ORDERED: HYDROmorphone INJ 1 MG/ML SYRINGE IV PRN (15:51)
[2024-09-28] MEDS ORDERED: ATROPINE SULFATE 0.1 MG/ML 10ML SYR IV PRN (15:51)
[2024-09-28] MEDS ORDERED: PROPOFOL IV EMULSION 10 MG/ML 20 ML VIAL IV ONE (16:30)
[2024-09-28] MEDS ORDERED: MIDAZOLAM HCL 1 MG/ML 2ML VIAL ONE (16:30)
[2024-09-28] MEDS ORDERED: fentaNYL citrate PF 100 MCG/2 ML VIAL ONE (16:30)
[2024-09-28] MEDS ORDERED: LIDOCAINE 2% 2 ML VIAL/AMP(20MG/ML) INFIL ONE (16:30)
[2024-09-28] MEDS ORDERED: DEXAMETHASONE SOD INJ 4 MG/ML VIAL ONE (16:51)
[2024-09-28] MEDS ORDERED: ONDANSETRON INJ 2 MG/ML 2 ML VIAL ONE (16:51)
[2024-09-28] MEDS: DIATRIZOATE MEGLUMINE 30% 100ML VIAL INSTIL PRN (17:05)
--- NOTE | 2024-09-28 17:14 | Operative Report ---
PG Post Operative Report Pre & Post Diagnosis Left urolithiasis Operation Date: 09/28/24 14:50 <No data on this case meets the specified criteria> Left urolithiasis I identified the patient and participated in the time-out.: Yes Procedure Cystoscopy, left retrograde pyelogram with radiographic interpretation, left ureteral stent placement Operation Date: 09/28/24 14:50 <No data on this case meets the specified criteria> Surgeon Anish Smith MD Graves Registration Specialist None Estimated Blood Loss 0 Findings Consistent with Post-Op Diagnosis Specimens None Drains 6x24 L stent Anesthesia Type MAC Complications none Indications 69 yo F with left obstructing ureteral calculus Description of Procedure After informed consent was obtained, the patient was transported operative suite. MAC anesthesia was induced. The patient was placed in dorsal lithotomy position prepped and draped in a sterile fashion. They received preoperative ceftriaxone for antibiotic prophylaxis. An appropriate surgical timeout was performed. A 22 [place] rigid scope was inserted per urethra into the bladder. Garcia cystoscopy revealed no stones or lesions. I turned my attention the left ureteral orifice and intubated this with a 5 [place] open-ended catheter. A left retrograde pyelogram was shot which showed moderate. A sensor wire was advanced into the kidney and confirmed fluoroscopically. A 6 [place] by 24 cm left ureteral stent was deployed with a good proximal coil in the renal pelvis and a good distal coil noted in the bladder. These were confirmed fluoroscopically and under direct visualization, respectively. The bladder was emptied and the scope was removed. This concluded the end of the case. All counts were correct at the end of the case. I was present, scrubbed, and actively participated for the entirety of the procedure. I attest to the content of the Intraoperative Record and any orders documented therein. Any exceptions are noted below.
--- NOTE | 2024-09-28 17:30 | Anesthesiology Progress Note ---
Date of Service September 28, 2024 Anesthesia Post Procedure Vital Signs Vital Signs: Temp Pulse Pulse Pulse Resp BP BP 09/28/24 17:20 72 13 130/68 09/28/24 17:13 36.3 C L 90 19 130/75 09/28/24 15:30 36.6 C 85 16 154/74 H 09/28/24 15:18 36.6 C 69 16 119/72 09/28/24 07:50 36.6 C 72 16 126/74 09/28/24 03:38 36.5 C 77 16 172/86 H 09/28/24 02:50 09/28/24 02:00 60 20 148/83 H 09/28/24 01:54 63 09/28/24 00:00 68 17 160/87 H 09/27/24 22:01 59 L 18 146/82 H 09/27/24 22:00 64 09/27/24 19:43 80 20 127/77 09/27/24 17:48 36.5 C 90 19 149/85 H Pulse Ox O2 Del Method O2 Flow Rate 09/28/24 17:20 92 Room Air 09/28/24 17:13 96 Oxymask 2 09/28/24 15:30 97 Room Air 09/28/24 15:18 93 Room Air 09/28/24 07:50 95 Room Air 09/28/24 03:38 95 Room Air 09/28/24 02:50 Room Air 09/28/24 02:00 98 Room Air 09/28/24 01:54 09/28/24 00:00 93 Room Air 09/27/24 22:01 97 Room Air 09/27/24 22:00 09/27/24 19:43 97 Room Air 09/27/24 17:48 97 Room Air Pain Intensity Left Flank: Pain Intensity: 3 Transfer of Care Handoff Completed per policy Notes Mental Status: alert / awake / arousable and participated in evaluation Patient Amnestic to Procedure: Yes Nausea / Vomiting: adequately controlled Pain: adequately controlled Airway Patency, RR, SpO2: stable & adequate BP & HR: stable & adequate Hydration State: stable & adequate Anesthetic Complications: no major complications apparent and Pt Satisfied with anesthetic care
--- NOTE | 2024-09-28 17:52 | Discharge Summary ---
Discharge Summary Date of Service September 28, 2024 Principal Dx & Hospital Course #1 = Principal Diagnosis (1) Nephrolithiasis: (2) Leukocytosis: (3) Hypertension: (4) Prediabetes: (5) Hyperlipidemia: Plan Patient is a 69 y/o female with a PMHx of prediabetes, HTN, HLD, and right sided nephrolithiasis requiring stents x1. She is being admitted for an infected left- sided nephrolithiasis requiring antibiotics, pain control and surgical management with urology. #nephrolithiasis/ Possible UTI CTAP showing Mild left hydronephrosis due to a 9 x 6 mm calculus in proximal left ureter, just beyond UPJ. S/p Uretral stent placement with Dr. Smith. Pain controlled and VSS post operatively. Discharged with Cipro BID for UTI, flomax, prn pyridium and prn tramadol. Patient has oxycodone at home as well. Urology follow up #Hypertension Continue home amlodipine/benazepril #Prediabetes Continue metformin No recent A1c on file however patient states is 5.5 #HLD Continue statin Dispo: discharge to home with urology follow up Admission HPI Per Admitting Provider Patient is a 69 y/o female with a PMHx of prediabetes, HTN, HLD, and right sided nephrolithiasis requiring stents x1. She is being admitted for an infected left- sided nephrolithiasis requiring IV antibiotics, IV pain control and possible surgical management with urology. Patient seen at bedside. She stated that she went to [place] with her cousin recently and had 2 days of hematuria there. She had no recurrence of the hematuria since. She then came home and started to develop left-sided flank pain and nausea/vomiting. She does have a history of kidney stones and this fe els similar so she knew she had a stone. He had right sided kidney stone approximately 4 years ago that required stent placement by Dr. Hawthorne. She has had multiple stones since but passed them on her own. She went to her PCP Thursday evening and they prescribed her Tylenol, oxycodone, and tamsulosin. They then referred her to the hospital for CT scan which showed a left-sided kidney stone. She stated she had significant pain Thursday and her PCP referred her to come to the ED. she did not start taking the medications prescribed. Patient denies fever, chills, dyspnea, chest pain, nausea, vomiting, dysuria. She does not use nicotine products or regularly drink alcohol. She denies history of diabetes but does have prediabetes takes metformin. She denies history of previous VTE. She does not have a history of COPD or asthma. She did take her home medications today, which includes Lotrel and a cholesterol medication. She wishes to be full code at this time. Discharge Exam General: NAD, VS as above, appears comfortable Resp: normal respiratory effort, lungs clear to auscultation CV: RRR, no murmur, Abd: normal bowel sounds, non tender, no hepatosplenomegaly Extremities: Moves all extremities, no edema Neuro: A&O x3, Skin: intact, no lesions noted Discharge Plan Discharge Items Patient Disposition: Home - Self-Care Reason For Visit: INFECTED KIDNEY STONE Discharge Diagnosis: kidney stone Activity: Resume your previous activity Non-emergency contact: Primary Care Provider and Urologist Call non-emergency contact if: you have any medication questions, your symptoms worsen, your pain is not controlled and your temperature is above 101 Follow-up/Referrals: Anish Smith MD [Physician] - (f/u for stone treatment/stent removal ) Sanjana Juárez DO [Primary Care Provider] - (f/u in on week ) Diet: Regular Addtl Attending Provider Instructions: Ms. Freitas, Shon were hospitalized after having worsing pain from a kidney stone. There were also concerns for a UTI. You underwent stent placement with Dr. Smith on 09/28. Please follow up with urology for stent removal and stone treatment. The following medication changes have been made: -Flomax - take this daily while stent is in place, this is to help with urination. I sent in a new prescription, please pick pack worker if you do not have enough at home until your urology follow up. -Pyridium - this can be taken up to 3 times a day as needed for pain with urination -Ciprofloxacin - antibiotic for UTI, take this as prescribed first dose 09/29 -Tramadol - as needed for pain not relieved by tylenol. You can also you take oxycodone that was previously prescribed. Continue your home medications CONTACT YOUR PRIMARY CARE PROVIDER/Urology if you experience any of the following: Shortness of breath or difficulty breathing Fevers or chills Feeling tired with normal activity or experiencing dizziness or fainting Difficulty following your treatment plan, or difficulty taking medications - uncontrolled pain CALL 911 OR GO TO THE EMERGENCY DEPARTMENT if you experience any of the following: Severe abdominal pain or nausea/vomiting Severe chest pain, or chest pain that radiates (moves) to your jaw or arm Sudden, severe shortness of breath or difficulty breathing - inabililty to urinate Thank you for allowing us to participate in your care. Pending Studies at Discharge: Yes (urine culture ) Stand-Alone Forms: My [facility], Smoking Cessation Medications and DC Order Prescriptions: New ciprofloxacin HCl 500 mg tablet 500 mg PO Q12H Qty: 10 0RF phenazopyridine [Pyridium] 200 mg tablet 200 mg PO Q8H PRN (Reason: pain) Qty: 6 0RF tramadol 50 mg tablet 50 mg PO Q6H PRN (Reason: pain) Qty: 10 0RF Continued metformin 500 mg tablet 500 mg PO BIDM pravastatin 10 mg tablet 10 mg PO HS oxycodone 5 mg tablet 5 mg PO Q4 PRN (Reason: Pain) amlodipine-benazepril 10-20 mg capsule 1 cap PO DAILY multivitamin Tablet 1 tab PO DAILY ascorbic acid (vitamin C) [Vitamin C] 1,000 mg Tablet 1 g PO DAILY aspirin 81 mg Tablet,Delayed Release (Dr/Ec) 81 mg PO DAILY tamsulosin 0.4 mg capsule 0.4 mg PO DAILY 14 Days Qty: 14 0RF Discharge Orders: Discharge Order (Routine); Ordered 09/28/24 Ordered By: Lexi Holt Admission Data Admit Date/Time: 09/28/24 01:52 Attending Provider: Kalani Palma Admit Provider: Abundio Du Primary Care Provider: Sanjana Juárez Other Providers: Lino Nichols; Anish Smith Hospital Stay Data Consultations 09/28/24 01:12 ED Decision to Admit Stat 09/28/24 01:53 Consult Urology Routine Procedures Performed Operation Date: 09/28/24 14:50 Actual Procedures p Cystoscopy, retrograde pyelogram, Left Ureteral Stent Placement(Not Applicable) - Anish Smith MD Diagnostic Imagining Performed 09/27/24 22:19 CT abd pelvis wo con Stat 09/28/24 16:50 [place] retrograde includes kub Routine Pending Results Patient Have Any Pending Studies at Discharge: Yes (urine culture ) Discharge Instructions Given to Patient (Per Discharging Provider) Ms. Freitas, Shon were hospitalized after having worsing pain from a kidney stone. There were also concerns for a UTI. You underwent stent placement with Dr. Smith on 09/28. Please follow up with urology for stent removal and stone treatment. The following medication changes have been made: -Flomax - take this daily while stent is in place, this is to help with urination. I sent in a new prescription, please pick pack worker if you do not have enough at home until your urology follow up. -Pyridium - this can be taken up to 3 times a day as needed for pain with urination -Ciprofloxacin - antibiotic for UTI, take this as prescribed first dose 09/29 -Tramadol - as needed for pain not relieved by tylenol. You can also you take oxycodone that was previously prescribed. Continue your home medications CONTACT YOUR PRIMARY CARE PROVIDER/Urology if you experience any of the following: Shortness of breath or difficulty breathing Fevers or chills Feeling tired with normal activity or experiencing dizziness or fainting Difficulty following your treatment plan, or difficulty taking medications - uncontrolled pain CALL 911 OR GO TO THE EMERGENCY DEPARTMENT if you experience any of the following: Severe abdominal pain or nausea/vomiting Severe chest pain, or chest pain that radiates (moves) to your jaw or arm Sudden, severe shortness of breath or difficulty breathing - inabililty to urinate Thank you for allowing us to participate in your care. Supervising Physician Co-Signing Physician Notes SHEEBA Supervision Note: I did not personally see or examine the patient today, but I verified all sharma points of SHEEBA Holt's assessment and plan with the following exceptions/additions: None Total Time Total Time Spent Total Time Spent (In Minutes): Time spent day of discharge 35 minutes including direct patient care, medication reconciliation, documentation, review of labs and images, and coordination of care. Case discussed with Urology Coding Level of Care Code 78873 INP/OBS DISCH >30 MIN Diagnoses Nephrolithiasis N20.0 Leukocytosis D72.829 Hypertension I10 Prediabetes R73.03 Hyperlipidemia E78.5
[2024-09-28 20:04] VITALS: BP 153/84; PULSE 84; RESP 18; TEMP 97.9; O2SAT 96
[2024-09-28] MEDS ORDERED: cefTRIAXone SODIUM 2,000 MG/50 ML BAG IV SCH (21:00)
[2024-09-28] MEDS ORDERED: TAMSULOSIN HCL 0.4 MG CAP PO SCH (21:00)
--- NOTE | 2024-09-28 23:02 | Billing Data ---
Date of Service September 28, 2024 Coding Level of Care Code 23705 INT INP/OBS CARE
--- NOTE | 2024-09-29 11:41 | Fluoroscopy Report ---
[place] retrograde includes kub CLINICAL HISTORY: CYSTO IN OR COMPARISON STUDY: CT of the abdomen and pelvis September 27, 2024. FLUOROSCOPY TIME: 6 seconds. Ka,r: 1.55 mGy FLUOROSCOPIC IMAGES: 2 FINDINGS: Fluoroscopy was provided during left retrograde pyelogram with ureteral stent insertion. Pr oximal aspect of the ureteral stent is within the left renal pelvis. IMPRESSION: Fluoroscopy provided during left retrograde pyelogram with left ureteral stent insertion . ACT 112: Negative or not required by law. Electronically signed by: Chucky Acosta M.D. 09/29/2024 11:40 AM
== END 2024-09-28 19:55 | disposition home or self-care (01) | DRG 661 ==
LOC: ED 17:08 → 3N 09-28 01:52 → SUATTDRO 09-28 01:52 → 3N 09-28 02:50